=== PATIENT | male | born 1990 | race African-American/Black ===

== ENCOUNTER 2020-04-29 11:04 | Emergency (ER) | payer SELFPAY ==
[~2020-04-29] VITALS: Ht 188 cm; Wt 99.8 kg
[2020-04-29 10:50] VITALS: BP 127/74
--- NOTE | 2020-04-29 11:00 | NUR ---
ED Nurse Note: pt. is aaox4. ambulatory. walked in to er from home. per pt. he was recently seen in a clinic yesterday and was prescribed atb for soretrhoat. Pt. is complaining of sob and sorethroat x 3 days. pt. denies med hx. no labored bretahing noted. no acessory muscle noted upon respirations noted. Pt. speaks full sentences with no difficulty
--- NOTE | 2020-04-29 11:34 | Emergency Room Report ---
History of Present Illness General Chief Complaint: Flu Like Symptoms Source: Patient Present Illness HPI 30-year-old male no reported past medical history presented from home due to sore throat, chest pain and shortness of breath. Symptoms present for 3 days. Pain is worse at night and with lying down. Denies any fevers, nausea vomiting or urinary complaints. He denies any sick contacts. He was seen at a clinic yesterday started on amoxicillin for pharyngitis. Chest pain is sharp worse with lying down, not worse on exertion. Allergies: Coded Allergies: No Known Allergies (Unverified , 04/29/20) COVID-19 Screening Contact w/high risk pt: No Recent Travel to affected area: No Experienced COVID-19 symptoms?: Yes COVID-19 symptoms experienced: Shortness of Breath COVID-19 Testing performed RANGE AID: No Patient History Reviewed Nursing Documentation: PMH: Agreed; PSxH: Agreed Nursing Documentation-PM Past Medical History: No Stated History Review of Systems All Other Systems: negative except mentioned in HPI Physical Exam Vital Signs Date Time Temp Pulse Resp B/P (MAP) Pulse Ox O2 Delivery O2 Flow Rate FiO2 04/29/20 10:50 98.8 88 19 127/74 96 Room Air Sp02 EP Interpretation: reviewed, normal General Appearance: well appearing, no apparent distress Head: normocephalic, atraumatic Eyes: bilateral eye PERRL, bilateral eye EOMI ENT: hearing grossly normal, uvula midline, moist mucus membranes, tonsillar swelling Neck: full range of motion, supple Respiratory: lungs clear, normal breath sounds, no rhonchi, no respiratory distress, no retraction, no wheezing Cardiovascular #1: normal peripheral pulses, regular rate, rhythm, no murmur Gastrointestinal: non tender, soft, non-distended, no guarding Neurologic: alert, oriented x3, no focal defects Skin: normal color, warm/dry Medical Decision Making Diagnostic Impression: Primary Impression: URI (upper respiratory infection) Additional Impression: Pharyngitis ER Course MDM:patient presented for sore throat, complains of shortness of breath and chest pain. Differential included but not limited to URI, pharyngitis, bronchitis, pneumonia, less likely ACS or PE. Clinical course-chest x-ray completed showed no acute infiltrate or other acute pathology. EKG showed no ischemic changes. Patient is currently taking oral antibiotics and instructed him to continue antibiotics. Patient was concerned about COVID infection. He was referred for outpatient testing through the [facility]. Patient discharged home to continue outpatient treatment as previously prescribed, I did add albuterol as needed for shortness of breath. Patient stable for discharge. EKG Diagnostic Results Rate: normal Rhythm: NSR ST Segments: no acute changes Other Impression Normal sinus rhythm Chest X-Ray Diagnostic Results Chest X-Ray Diagnostic Results : Chest X-Ray Ordered: Yes # of Views/Limited/Complete: 1 View Indication: Shortness of Breath EP Interpretation: Yes Interpretation: no consolidation, no effusion, no pneumothorax Impression: No acute disease Electronically Signed by: Rodo Haley MD Last Vital Signs Date Time Temp Pulse Resp B/P (MAP) Pulse Ox O2 Delivery O2 Flow Rate FiO2 04/29/20 10:50 98.8 88 19 127/74 (91) 96 Room Air Disposition: HOME, SELF-CARE Condition: Stable Scripts Albuterol Sulfate* (Albuterol Sulfate Hfa*) 8.5 Gm Hfa.aer.ad 2 PUFF INH Q6H PRN for Shortness of Breath, #1 INH Prov: Rodo Haley M.D. 04/29/20 Rodo Haley M.D. Apr 29, 2020 11:34
[2020-04-29] MEDS ORDERED: ALBUTEROL SULF8.5 G1 INH (12:17)
[2020-04-29 12:20] VITALS: BP 115/75
--- NOTE | 2020-04-29 12:20 | NUR ---
ER DISCHARGE NOTE: Patient is cleared to be discharged per ERMD, pt is aox4, on room air, with stable vital signs. pt was given dc and prescription instructions, pt was able to verbalize understanding, pt id band removed. pt is able to ambulate with steady gait. pt took all belongings.
--- NOTE | 2020-04-29 16:22 | Diagnostic Imaging Report ---
Indication: Shortness of breath Technique: One view of the chest Comparison: none Findings: Lungs and pleural spaces are clear. Heart size is normal. Impression: No acute process
== END 2020-04-29 12:20 | disposition home or self-care (01) ==
LOC: EMR 11:14
DX: J02.9 Acute pharyngitis, unspecified (principal); J06.9 Acute upper respiratory infection, unspecified; R07.9 Chest pain, unspecified
CPT/HCPCS: 71045; 93005; 99283